=== PATIENT | female | born 1990 | race Caucasian/White ===

== ENCOUNTER → 2018-10-01 | Outpatient (CLI) | payer OTHER ==
--- NOTE | 2018-10-01 08:46 | US ---
EXAMINATION TYPE: Transabdominal DATE OF EXAM: 10/01/2018 8:12 AM COMPARISON: NONE CLINICAL HISTORY: Z36 confirm dates. Confirm dates, 1 EXAM PERFORMED: Transabdominal (TA) EXAM MEASUREMENTS: GESTATIONAL AGE / DATING Physician Established: Not established yet Dates by LMP: (13 weeks/1 days) EDC: 04/07/2019 Dates by First Scan: This is 1st scan Dates by Current Scan for: (12 weeks/5 days) EDC: 04/10/2019 MATERNAL ANATOMY Uterus: 10.7 x 7.2 x 8.8cm, anteverted Right Ovary: 3.6 x 1.4 x 2.2cm Left Ovary: 2.8 x 1.4 x 2.2cm Post CDS / Adnexa: wnl Presence of free fluid: no Presence of corpus luteal cyst: not seen Presence of subchorionic bleed: no GESTATION / SURVEY CRL: 6.3cm (12 weeks/5 days) Yolk Sac (normal less than 6mm): not seen Heart Rate: 159 bpm Rhythm: Normal IUP: Live IUP Nuchal Translucency 10-14wks (normal less than 3mm): not seen due to position Date of LMP: 07/01/2018 Beta HcG (if available): Not available at time of exam Life single IUP measuring 12 weeks 5 days with a heart rate of 159bpm and an estimated delivery date of 04/10/2019. IMPRESSION: Single live intrauterine with a sonographic age of 12 weeks and 5 days and estimated date o f delivery of 04/10/2019, concordant with menstrual age. Note that the nuchal translucency was not seen due to position.
== END | disposition home or self-care (01) ==
LOC: RADUSWWP 07:34
PROVIDERS: ATTEND Obstetrics & Gynecology
DX: Z36.87 Encounter for antenatal screening for uncertain dates (principal)
CPT/HCPCS: 76801

== ENCOUNTER 2019-04-08 10:50 | Inpatient (IN) | payer OTHER ==
[2019-04-09] MEDS ORDERED: OXYTOCIN 10 UNIT/ML 1 ML VIAL IM PRN (06:09)
[2019-04-09] MEDS ORDERED: METHYLERGONOVINE 0.2 MG/ML 1 ML AMP IM PRN (06:09)
[2019-04-09] MEDS ORDERED: CARBOPROST TROMETHAMINE 250 MCG/ML 1 ML AMP IM PRN (06:09)
[2019-04-09] MEDS ORDERED: LIDOCAINE 0.5% (PF) 5 MG/ML (50 ML SDV) SQ PRN (06:09)
[2019-04-09] MEDS ORDERED: TERBUTALINE 1 MG/ML VIAL SQ PRN (06:09)
[2019-04-09] MEDS ORDERED: OXYTOCIN 30 UNITS/500 ML NS 30 UNIT in SALINE 1 500ML.BAG IV SCH (06:15)
[2019-04-09] MEDS: LACTATED RINGERS 1,000 ML IV SCH ×2 (06:48→23:55)
[2019-04-09 06:59] LABS: Anisocytosis Slight; Basophils % (A) 0 %; Eosinophils # (A) 0.3 k/uL (0-0.7); Eosinophils % (A) 3 %; HCT 31.2 % (34.0-46.0); HGB 10.2 gm/dL (11.4-16.0); Lymphocytes # (A) 2.2 k/uL (1.0-4.8); Lymphocytes % (A) 18 %; MCH 28.1 pg (25.0-35.0); MCHC 32.6 g/dL (31.0-37.0); MCV 86.1 fL (80.0-100.0); Mean Platelet Volume 10.4; Monocytes # (A) 1.1 k/uL (0-1.0); Monocytes % (A) 9 %; Neutrophils # (A) 8.2 k/uL (1.3-7.7); Neutrophils % (A) 67 %; Platelet Count 228 k/uL (150-450); RBC 3.63 m/uL (3.80-5.40); RDW 16.5 % (11.5-15.5); WBC 12.2 k/uL (3.8-10.6)
[2019-04-09] MEDS ORDERED: BUTORPHANOL 1 MG/ML 1 ML VIAL IV PRN (08:13)
--- NOTE | 2019-04-09 08:16 | P.HPOB ---
History of Present Illness H&P Date: 04/09/19 Chief Complaint: Induction of labor 28-year-old presents at 39 weeks and 4 days for induction of labor. Her cervix is 1-2 cm dilated, 80% effaced, and -2 station. She is pay[place] irregularly. heart tones 130 with moderate variability and reactive. Review of Systems All systems: negative Constitutional: Denies chills, Denies fever Eyes: denies blurred vision, denies pain Ears, nose, mouth and throat: Denies headache, Denies sore throat Cardiovascular: Denies chest pain, Denies shortness of breath Respiratory: Denies cough Gastrointestinal: Denies abdominal pain, Denies diarrhea, Denies nausea, Denies vomiting Genitourinary: Denies dysuria, Denies hematuria Musculoskeletal: Denies myalgias Integumentary: Denies pruritus, Denies rash Neurological: Denies numbness, Denies weakness Psychiatric: Denies anxiety, Denies depression Endocrine: Denies fatigue, Denies weight change Past Medical History Past Medical History: No Reported History Additional Past Medical History / Comment(s): Obstetric history: This is her first and she's had care with me since the first trimester. Quad negative GBS negative, normal anatomy ultrasound, blood type A+, antibodies negative, rubella immune, RPR nonreactive, HIV nonreactive, hepatitis B negative. History of Any Multi-Drug Resistant Organisms: None Reported Past Surgical History: No Surgical Hx Reported Additional Past Surgical History / Comment(s): [place] teeth removal Past Anesthesia/Blood Transfusion Reactions: No Reported Reaction Past Psychological History: No Psychological Hx Reported Smoking Status: Never smoker Past Alcohol Use History: None Reported Past Drug Use History: None Reported - Past Family History Mother Family Medical History: No Reported History Medications and Allergies Home Medications Medication Instructions Recorded Confirmed Type Pnv,Calcium 72/Iron/Folic Acid 1 each PO 04/09/19 History [ Plus Tablet] Allergies Allergy/AdvReac Type Severity Reaction Status Date / Time No Known Allergies Allergy Verified 04/09/19 06:07 Exam Osteopathic Statement: *. No significant issues noted on an osteopathic structural exam other than those noted in the History and Physical/Consult. Vital Signs Temp Pulse Resp BP Pulse Ox 04/09/19 06:07 97.7 F 113 H 16 130/78 97 Intake and Output 01/04/09/19 04/09/19 22:59 06:59 14:59 Other: Weight 87.543 kg Heart: Regular rate and rhythm Lungs: Clear to auscultation bilaterally Abdomen: Soft, nontender Extremities: Negative Homans sign Results Result Diagrams: 04/09/19 06:25 Abnormal Lab Results - Last 24 Hours (Table) 04/09/19 Range/Units 06:25 WBC 12.2 H (3.8-10.6) k/uL RBC 3.63 L (3.80-5.40) m/uL Hgb 10.2 L (11.4-16.0) gm/dL Hct 31.2 L (34.0-46.0) % RDW 16.5 H (11.5-15.5) % Neutrophils # 8.2 H (1.3-7.7) k/uL Monocytes # 1.1 H (0-1.0) k/uL Assessment and Plan (1) Normal labor Current Visit: Yes Status: Acute Code(s): O80 - ENCOUNTER FOR FULL-TERM UNCOMPLICATED DELIVERY; Z37.9 - OUTCOME OF DELIVERY, UNSPECIFIED SNOMED Code(s): 90951105 Plan: 1. Amniotomy and Pitocin for induction of labor 2. Anticipate normal vaginal delivery
[2019-04-09] MEDS ORDERED: fentaNYL (PF) 50 MCG/ML 5 ML AMP ONE (14:46)
[2019-04-09] MEDS ORDERED: ROPIVACAINE 5MG/ML 20ML VIAL ONE (14:46)
[2019-04-09] MEDS ORDERED: SODIUM CHLORIDE 0.9% 100 ML BAG ONE (14:46)
[2019-04-09] MEDS ORDERED: ZOLPIDEM 5 MG TAB PO PRN (21:03)
[2019-04-09] MEDS ORDERED: diphenhydrAMINE 25 MG CAP PO PRN (21:03)
[2019-04-09] MEDS ORDERED: ACETAMINOPHEN TAB 325 MG TAB PO PRN (21:03)
[2019-04-09] MEDS ORDERED: diphenhydrAMINE 50 MG CAP PO PRN (21:03)
[2019-04-09] MEDS ORDERED: SIMETHICONE 80 MG CHEWABLE PO PRN (21:03)
[2019-04-09] MEDS ORDERED: BENZOCAINE/MENTHOL SPRAY 1 GM/SPRAY AEROSOL TOPICAL PRN (21:03)
[2019-04-09] MEDS ORDERED: LANOLIN CREAM 5 GM TUBE TOPICAL PRN (21:03)
[2019-04-09] MEDS ORDERED: WITCH HAZEL 1 EACH MED..PAD TOPICAL PRN (21:03)
[2019-04-09] MEDS ORDERED: HYDROCORTISONE 2.5% RECTAL CREAM 30 GM TUBE RECTAL PRN (21:03)
[2019-04-09] MEDS ORDERED: diphenhydrAMINE 50 MG/ML 1 ML VIAL IVP PRN ×2 (21:03)
--- NOTE | 2019-04-09 21:05 | P.PROBDLV ---
Vaginal Delivery Note - . Vaginal Delivery Note: 28-year-old presents at 39 weeks and 4 days for induction of labor. Her cervix is 1-2 cm dilated, 80% effaced, and -2 station. She is pay[place] irregularly. heart tones 130 with moderate variability and reactive. Pitocin was started. Amniotomy was performed at 7:51 AM and clear fluid noted. When her cervix was 5 cm dilated she did get an epidural. Her cervix is completely dilated at 1930. She pushed, and delivered a viable male over intact perineum under epidural anesthesia at 2041. Head delivered OA, nuchal cord 1 easily reduced, anterior shoulder delivered gentle downward guidance from the posterior shoulder and rest of body. Nose and mouth bulb suctioned, cord clamped and cut, placed on mother's abdomen. Apgars 8, 9, weight 7 lbs. 14 oz. Placenta delivered spontaneously, intact with three-vessel cord at 2044. Vagina, cervix, and perineum were inspected. First-degree midline laceration and a left labial laceration repaired with 3-0 Vicryl. Estimated blood loss 250 mL. Mother and baby in stable condition.
[2019-04-09] MEDS ORDERED: OXYTOCIN 20 UNITS/1000 ML NS 1,000 ML IV SCH (21:15)
[2019-04-09] MEDS: IBUPROFEN 600 MG TAB PO PRN (22:27)
[2019-04-10] MEDS: IBUPROFEN 600 MG TAB PO PRN ×4 (04:04→23:13)
[2019-04-10 07:07] LABS: Anisocytosis Slight; Basophils % (A) 0 %; Eosinophils # (A) 0.1 k/uL (0-0.7); Eosinophils % (A) 1 %; HGB 9.2 gm/dL (11.4-16.0); Lymphocytes # (A) 1.7 k/uL (1.0-4.8); Lymphocytes % (A) 12 %; MCH 28.4 pg (25.0-35.0); MCHC 32.8 g/dL (31.0-37.0); MCV 86.5 fL (80.0-100.0); Mean Platelet Volume 10.6; Monocytes # (A) 1.3 k/uL (0-1.0); Monocytes % (A) 9 %; Neutrophils # (A) 11.1 k/uL (1.3-7.7); Neutrophils % (A) 76 %; Platelet Count 200 k/uL (150-450); RBC 3.24 m/uL (3.80-5.40); RDW 16.6 % (11.5-15.5); WBC 14.6 k/uL (3.8-10.6)
[2019-04-10] MEDS: SENNOSIDES-DOCUSATE SODIUM 1 EACH TAB PO SCH ×2 (08:06→23:00)
[2019-04-11] MEDS: IBUPROFEN 600 MG TAB PO PRN ×2 (05:24→14:05)
--- NOTE | 2019-04-11 07:47 | P.PNOBGVD ---
Subjective - Subjective Principal diagnosis: Status post normal vaginal delivery day #1 Interval history: Patient seen and examined. Denies nausea, vomiting, chest pain, shortness of breath or calf pain. Patient reports: Reports appetite normal, Reports voiding normally, Reports pain well controlled, Reports ambulating normally [place]: doing well Objective - Latest Vital Signs Latest vital signs: Vital Signs Temp Pulse Resp BP 04/10/19 23:34 98.5 F 77 16 124/71 04/10/19 16:00 98.6 F 90 16 129/71 04/10/19 08:00 97.8 F 88 16 116/83 - Exam Lungs: bilateral: normal Chest: Normal S1, Normal S2 Extremities: Present: normal Abdomen: Present: normal appearance, soft Uterus: Present: normal, firm Assessment and Plan (1) Normal labor Current Visit: Yes Status: Resolved Code(s): O80 - ENCOUNTER FOR FULL-TERM UNCOMPLICATED DELIVERY; Z37.9 - OUTCOME OF DELIVERY, UNSPECIFIED SNOMED Code(s): 66805889 (2) Normal vaginal delivery Current Visit: Yes Status: Acute Code(s): O80 - ENCOUNTER FOR FULL-TERM UNCOMPLICATED DELIVERY SNOMED Code(s): 78522804 Plan: 1. Continue care
--- NOTE | 2019-04-11 07:49 | P.DS ---
Providers Date of admission: 04/09/19 06:05 Expected date of discharge: 04/11/19 Attending physician: Syeda Phan Primary care physician: Stated None - Discharge Diagnosis(es) (1) Normal labor Current Visit: Yes Status: Resolved (2) Normal vaginal delivery Current Visit: Yes Status: Acute Hospital Course: Patient presented for induction of labor. She underwent normal vaginal delivery. Her course was uncomplicated. She'll be discharged home day #2 in stable condition to follow-up with me in 6 weeks. Plan - Discharge Summary New Discharge Prescriptions: New Ibuprofen [Motrin] 600 mg PO Q6HR PRN #30 tab PRN Reason: Mild Pain Or Fever >= 100.5 No Action Pnv,Calcium 72/Iron/Folic Acid [ Plus Tablet] 1 each PO Discharge Medication List Pnv,Calcium 72/Iron/Folic Acid [ Plus Tablet] 1 each PO 04/09/19 [History] Ibuprofen [Motrin] 600 mg PO Q6HR PRN #30 tab 04/11/19 [Rx] Follow up Appointment(s)/Referral(s): Syeda Phan DO [Doctor of Osteopathic Medicine] - 6 Weeks Discharge Disposition: HOME SELF-CARE
[2019-04-11 10:53] VITALS: BP 122/63; PULSE 93; RESP 18; TEMP 98.2
[2019-04-11] MEDS: SENNOSIDES-DOCUSATE SODIUM 1 EACH TAB PO SCH (14:05)
== END 2019-04-11 15:30 | disposition home or self-care (01) | DRG 807 ==
LOC: 4FBP 04-09 06:05
PROVIDERS: ADMIT Obstetrics & Gynecology; ATTEND Obstetrics & Gynecology
PROC: 3E0R3BZ Introduction of Anesthetic Agent into Spinal Canal, Percutaneous Approach (ICD-10-PCS; principal; 2019-04-09)
PROC: 00HU33Z Insertion of Infusion Device into Spinal Canal, Percutaneous Approach (ICD-10-PCS; principal; 2019-04-09)
PROC: 10E0XZZ Delivery of Products of Conception, External Approach (ICD-10-PCS; principal; 2019-04-09)
PROC: 0HQ9XZZ Repair Perineum Skin, External Approach (ICD-10-PCS; principal; 2019-04-09)
DX: O69.81X0 Labor and delivery complicated by cord around neck, without compression, not applicable or unspecified (principal); Z37.0 Single live birth; O70.0 First degree perineal laceration during delivery; Z3A.39 39 weeks gestation of pregnancy; Z87.09 Personal history of other diseases of the respiratory system
CPT/HCPCS: 85025; 86850; 86900; 86901

== ENCOUNTER → 2019-10-21 | Outpatient (CLI) | payer OTHER | END | disposition home or self-care (01) | LOC: LABWHC1 10:30 | PROVIDERS: ATTEND Obstetrics & Gynecology | DX: N92.6 Irregular menstruation, unspecified (principal) | CPT/HCPCS: 36415; 84702 ==

== ENCOUNTER 2022-10-21 22:00 | Emergency (ER) | payer OTHER ==
[2022-10-21 22:08] VITALS: TEMP 98
[2022-10-21] MEDS ORDERED: methylPREDNISolone SOD SUCCI 125 MG/2 ML VIAL IV STA (22:12)
[2022-10-21] MEDS ORDERED: FAMOTIDINE 20 MG/2 ML VIAL IV STA (22:13)
[2022-10-21] MEDS ORDERED: diphenhydrAMINE 50 MG/ML 1 ML VIAL IVP STA (22:13)
--- NOTE | 2022-10-21 23:15 | XR ---
EXAM: XR Chest, 2 Views CLINICAL HISTORY: ITS.REASON XR Reason: SOB TECHNIQUE: Frontal and lateral views of the chest. COMPARISON: No relevant prior studies available. FINDINGS: Lungs: Unremarkable. No consolidation. Pleural space: Unremarkable. No pneumothorax. Heart: Unremarkable. No cardiomegaly. Mediastinum: Unremarkable. Bones/joints: Unremarkable. IMPRESSION: Normal chest x-rays.
--- NOTE | 2022-10-22 00:09 | ED ---
Allergic Reaction HPI - General Chief complaint: Allergic Reaction Stated complaint: Allergic Reaction Time Seen by Provider: 10/21/22 22:12 Source: patient, family Mode of arrival: wheelchair Limitations: no limitations - History of Present Illness Initial Comments: Patient is 32-year-old female who presents to the emergency department for ALLERGIC reaction. Patient has shellfish ALLERGY states she ate a fish meal at a restaurant that she typically eats without ALLERGIC reaction. Soon after eating the food patient felt "bumps in her mouth," she also felt that it was a little difficult to swallow and felt mildly short of breath. Patient did not have her EpiPen and presented to the emergency department for further management. - Related Data Home Medications Medication Instructions Recorded Confirmed Vit No.180/Iron/Folic 1 each PO 04/09/19 [ Plus Tablet] Previous Rx's Medication Instructions Recorded Ibuprofen [Motrin] 600 mg PO Q6HR PRN #30 tab 04/11/19 predniSONE 50 mg PO DAILY #5 tab 10/22/22 Allergies Allergy/AdvReac Type Severity Reaction Status Date / Time shellfish derived [Shellfish] AdvReac Anaphylaxis Verified 10/21/22 22:07 tree nut [Nut] AdvReac Anaphylaxis Verified 10/21/22 22:07 Review of Systems ROS Statement: Those systems with pertinent positive or pertinent negative responses have been documented in the HPI. ROS Other: All systems not noted in ROS Statement are negative. Past Medical History Past Medical History: No Reported History Additional Past Medical History / Comment(s): Obstetric history: This is her first and she's had care with me since the first trimester. Quad negative GBS negative, normal anatomy ultrasound, blood type A+, antibodies negative, rubella immune, RPR nonreactive, HIV nonreactive, hepatitis B negative. History of Any Multi-Drug Resistant Organisms: None Reported Past Surgical History: No Surgical Hx Reported Additional Past Surgical History / Comment(s): [place] teeth removal Past Anesthesia/Blood Transfusion Reactions: No Reported Reaction Past Psychological History: No Psychological Hx Reported Smoking Status: Never smoker Past Alcohol Use History: Daily Past Drug Use History: None Reported - Past Family History Mother Family Medical History: No Reported History General Exam Limitations: no limitations General appearance: alert ENT exam: Present: normal oropharynx (No tongue or lip swelling) Neck exam: Present: normal inspection. Absent: tenderness, meningismus, lymphadenopathy Respiratory exam: Present: normal lung sounds bilaterally. Absent: respiratory distress, wheezes, rales, rhonchi, stridor Cardiovascular Exam: Present: regular rate, normal rhythm, normal heart sounds. Absent: systolic murmur, diastolic murmur, rubs, gallop, clicks Neurological exam: Present: alert Psychiatric exam: Present: normal affect, normal mood Skin exam: Present: warm, dry, intact, normal color. Absent: rash Course Vital Signs 10/21/22 10/21/22 10/21/22 22:05 22:10 22:49 Temperature 98 F Pulse Rate 96 82 Respiratory 22 22 Rate Blood Pressure 134/81 O2 Sat by Pulse 93 L 97 Oximetry 10/22/22 00:23 Temperature Pulse Rate 76 Respiratory 18 Rate Blood Pressure 130/84 O2 Sat by Pulse 96 Oximetry Medical Decision Making - Medical Decision Making Was pt. sent in by a medical professional or institution (, PA, PASSPORT SUPPORT MANAGER, urgent care, hospital, or long term...) When possible be specific @ -No Did you speak to anyone other than the patient for history (EMS, parent, family, police, friend...)? What history was obtained from this source @ -No Did you review nursing and triage notes (agree or disagree)? Why? @ -I reviewed and agree with nursing and triage notes Were old charts reviewed (outside hosp., previous admission, EMS record, old EKG, old radiological studies, urgent care reports/EKG's, long term records)? Report findings @ -No old charts were reviewed Differential Diagnosis (chest pain, altered mental status, abdominal pain women, abdominal pain men, vaginal bleeding, weakness, fever, dyspnea, syncope, headache, dizziness, GI bleed, back pain, seizure, CVA, palpatations, mental health)? @ - urticaria, anaphylaxis, ALLERGIC reaction EKG interpreted by me (3pts min.). @ -As above X-rays interpreted by me (1pt min.). @ -None done CT interpreted by me (1pt min.). @ -None done U/S interpreted by me (1pt. min.). @ -None done What testing was considered but not performed or refused? (CT, X-rays, U/S, labs)? Why? @ -None What meds were considered but not given or refused? Why? @ -None Did you discuss the management of the patient with other professionals (professionals i.e. , PA, PASSPORT SUPPORT MANAGER, lab, RT, psych nurse, social security benefits interviewer, shape carver, teacher, retail loan officer, heel caser)? Give summary @ -No Was smoking cessation discussed for >3mins.? @ -No Was critical care preformed (if so, how long)? @ -No Were there social determinants of health that impacted care today? How? (H omelessness, low income, unemployed, alcoholism, drug addiction, transportation, low edu. Level, literacy, decrease access to med. care, assisted, rehab)? @ -No Was there de-escalation of care discussed even if they declined (Discuss DNR or withdrawal of care, Hospice)? DNR status @ -No What co-morbidities impacted this encounter? (DM, HTN, Smoking, COPD, CAD, Cancer, CVA, ARF, Chemo, Hep., AIDS, mental health diagnosis, sleep apnea, morbid obesity)? @ -None Was patient admitted / discharged? Hospital course, mention meds given and route, prescriptions, significant lab abnormalities, going to OR and other pertinent info. @ -Patient presenting for suspected ALLERGIC reaction to shellfish. No lip or tongue swelling exam. No wheezing. No hypoxia. Patient given ALLERGY cocktail. She was observed in the emergency department for over 2 hours her symptoms improved. Patient stable medical condition with discharge. She is discharged with prednisone prescription. She will continue Benadryl home. We discussed or return parameters. Undiagnosed new problem with uncertain prognosis? @ -No Drug Therapy requiring intensive monitoring for toxicity (Heparin, Nitro, Insulin, Cardizem)? @ -No Were any procedures done? @ -No Diagnosis/symptom? @ALLERGIC reaction Acute, or Chronic, or Acute on Chronic? @ -Acute Uncomplicated (without systemic symptoms) or Complicated (systemic symptoms)? @Uncomplicated Side effects of treatment? @ -No Exacerbation, Progression, or Severe Exacerbation? @ -No Poses a threat to life or bodily function? How? (Chest pain, [place], [place], pneumonia, PE, COPD, DKA, ARF, appy, cholecystitis, CVA, Diverticulitis, Homicidal, Suicidal, threat to staff... and all critical care pts) @ -[No] Dr. Shaw is my attending Disposition Clinical Impression: Allergic reaction Disposition: HOME SELF-CARE Condition: Good Instructions (If sedation given, give patient instructions): Anaphylaxis (ED) Additional Instructions: Take Benadryl around the clock. Take prednisone as directed. Start prednisone tomorrow. Follow-up with primary care provider in one to 2 days. Return to the emergency department if you experience new, concerning, or worsening symptoms. Prescriptions: predniSONE 50 mg PO DAILY #5 tab Is patient prescribed a controlled substance at d/c from ED?: No Referrals: None,Stated [Primary Care Provider] - 1-2 days
[2022-10-22 00:24] VITALS: BP 130/84; PULSE 76; RESP 18
== END 2022-10-22 00:24 | disposition home or self-care (01) ==
LOC: EC 22:00
DX: T78.40XA Allergy, unspecified, initial encounter (principal); Z91.013 Allergy to seafood; Z91.018 Allergy to other foods
CPT/HCPCS: 71046; 99283; 96374; 96375 ×2; J1200; J2930